=== PATIENT | male | born 1980 ===

== ENCOUNTER 2016-10-21 08:40 | Emergency (ER) | payer MEDICAID, OTHER ==
[~2016-10-21] VITALS: Ht 177.8 cm; Wt 83.6 kg
[2016-10-21 08:49] VITALS: BP 108/61; PULSE 71; RESP 34; O2SAT 100
[2016-10-21] MEDS ORDERED: Ondansetron 2 mg/mL 2 mL Inj ONE (08:53)
--- NOTE | 2016-10-21 09:02 | ED.REPORT ---
HPI-General Illness Date of Service Oct 21, 2016 ED Provider: Dr. Hawley Patient is a 36 year old male w. a hx of chronic abdominal pain of unclear etiology that has taken aspirin x5 for pain control prior to arrival complaining of ongoing epigastric abdominal pain for the past year, worse this morning. Pain is described as a cramping and burning, intensity 10/10. He admits to having diarrhea and vomiting with dark colored emesis, as well as pallor, dizziness and lightheadedness. Patient denies black or bloody tarry stools. He denies any history of medical problems, previous surgeries. He drinks about 2 beers every other day. Nursing Notes Stated Complaint: ABDOMINAL PAIN Chief Complaint: General Complaint Nursing Notes Reviewed: Yes Allergies: Coded Allergies: No Known Allergies (Unverified , 10/21/16) Scheduled Famotidine (Pepcid) 40 Mg Tablet 40 MG PO BID Scheduled PRN Hydrocodone-Acetaminophen 5-325 mg (Hydrocodone-Acetaminophen 5-325 mg) 1 Each Tablet 1 TABLET PO Q4H PRN PRN For Pain Ondansetron ODT (Zofran ODT) 4 Mg Tablet 4 MG PO Q4H PRN PRN For Nausea General Time Seen by MD: 09:02 Chief Complaint Abdominal pain Hx Obtained From: Patient Arrived By: Walk-in Sudden in Onset?: No Onset Occurred: More than a week ago... (>6 months) Symptom Duration: Since onset Location: : Abdomen Quality: Burning Severity: Current: Severe Severity: Maximum: Severe Recent Healthcare: No recent doctor visit, No recent hospitalization Similar Sx Previous: Yes Past Medical History Past Medical History Hx of abdominal pain Past Surgical History No surgery reported Smoking History Never Smoker Social History Has not smoked THC in over a year. Alcohol Use: 1-3 per week Drug Use: THC Ambulatory Status Independent Review of Systems Full Review of Systems Constitutional: Reports: Chills, Denies: Fever Ears / Nose / Throat: Denies: Sore throat Cardiovascular: Denies: Chest pain GI: Reports: Abdominal pain, Hematemesis, Nausea, Vomiting, Denies: Bloody/tarry stool Neurologic: Reports: Dizziness, Lightheaded Complete sys rev & neg: except as marked. Physical Exam Vital Signs Vital Signs Date Time Temp Pulse Resp B/P Pulse Ox O2 Delivery O2 Flow Rate FiO2 10/21/16 11:28 36.7 92 19 149/89 99 Room Air 10/21/16 09:05 72 27 112/58 100 Room Air 10/21/16 08:49 36.1 71 34 108/61 100 Room Air Initial VS: Reviewed, Vital signs abnormal Head / Eyes: Atraumatic, Normocephalic, PERRL ENT: Mucous membranes moist, Conjunctiva normal, No scleral icterus Neck: Supple, Full range of motion Respiratory: Breath sounds normal, No respiratory distress Cardiovascular: Regular rate & rhythm, Heart sounds normal Extremities: Vascular intact, Neuro intact Skin: Warm, Dry, No cyanosis Neurologic: Alert, Oriented Psychiatric: Mood/affect normal, Behavior normal, Normal thought content General/Constitutional: Awake, Alert, Cooperative, Not toxic appearing Appearance / Presentation: Positive: Pale Abdomen: Atraumatic, Soft, No guarding, No rebound, No distention Tenderness/Guarding/Rebound: Positive: Tender epigastric Interpretation & Diagnostics Lab Results Interpretation Result Diagram: 10/21/16 0855 10/21/16 0855 Test 10/21/16 08:55 White Blood Count 9.7th/mm3 (3.8-10.1) Red Blood Count 4.41mil/mm3 (4.40-5.80) Hemoglobin 13.1g/dL (13.8-17.2) Hematocrit 37.1% (41.0-50.0) Mean Corpuscular Volume 84.1fL (81-100) Mean Corpuscular Hemoglobin 29.7pg (27.0-35.0) Mean Corpuscular Hemoglobin Concent 35.3% (32.0-37.0) Red Cell Distribution Width 13.5% (12.3-15.4) Platelet Count 224bil/L (150-400) Neutrophils (%) (Auto) 60.5% (40-74) Lymphocytes (%) (Auto) 30.8% (14-46) Monocytes (%) (Auto) 6.4% (4-12) Eosinophils (%) (Auto) 1.9% (0-5) Basophils (%) (Auto) 0.2% (0-3) Prothrombin Time 10.0sec (8.1-12.5) Prothromb Time International Ratio 0.94ratio Sodium Level 137mEq/L (134-144) Potassium Level 3.9mEq/L (3.5-5.2) Chloride Level 101mEq/L (97-108) Carbon Dioxide Level 20mmol/L (18-29) Blood Urea Nitrogen 9mg/dL (6-20) Creatinine 0.94mg/dL (0.76-1.27) Estimat Glomerular Filtration Rate 97mL/min (>59) Glucose Level 194mg/dL (60-99) Calcium Level 10.0mg/dL (8.5-10.1) Magnesium Level 2.1mg/dL (1.6-2.6) Total Bilirubin 0.3mg/dL (0.0-1.2) Aspartate Amino Transf (AST/SGOT) 15U/L (0-50) Alanine Aminotransferase (ALT/SGPT) 14U/L (0-44) Alkaline Phosphatase 82U/L (25-150) Troponin T 0.010ug/L (0.0-0.011) Total Protein 7.1g/dL (6.4-8.4) Albumin 4.3g/dL (3.4-5.0) Hold White Top Tube Received (Received) ECG Interpretation Time: 08:58 Interpreted by: ED physician Normal ECG Interpretation: Normal sinus rhythm (72) CT Abd / Pelvis Interpretation IMPRESSION: 1. Cholelithiasis as above. No wall thickening or ductal dilation. 2. Mild/moderate scattered stool without obstruction. Dictated by: Padmini Packer M.D. on 10/21/2016 at 10:41 Approved by: Padmini Packer M.D. on 10/21/2016 at 10:44 Study type: Abdominal CT IV contrast Interpretation / Wet Read by: Interpret - Radiologist Re-Eval/Medical Decision Med Decision/Clinical Course No obvious cause for pain, he is not tender in the right upper quadrant and there is no signs of cholecystitis is likely incidental. He will be discharged with pain, nausea medication, as well as Pepcid. Return and follow-up precautions given. Source of Hx: Old records Time of Eval: 09:02 Patient Status: Condition improved Re-Evaluation/Progress Note: Patient is informed of radiology results and diagnosis. Abdomen reevaluated, no right upper quadrant tenderness, patient is nontender to palpation in all 4 quadrants without rebound or guarding. Plan for discharge is discussed. The patient understands and agrees with the plan. All questions have been answered at this time. Counseled Regarding: Diagnosis, Lab results, Need for follow-up, When/why to return to ED Discharge & Departure Primary Impression: Acute abdominal pain Disposition: Home Discharge Condition All VS Reviewed: Yes Condition: Improved Additional Instructions: Your labs and CAT scan are reassuring. Begin taking Pepcid, Zofran, and tramadol as needed. Follow-up with the GI doctor and general surgeon for further evaluation and discussion of your gallstones as well as possible upper endoscopy. Avoid alcohol, spicy foods, greasy foods, acidic foods or other things which may upset your stomach. Return to the ER as needed for concerning symptoms. Referrals: Kayla Blue MD (PCP) [facility] Son Attestation Portions of this note were transcribed by Minh Warren and Austen Xiao. I, Dr. Hawley personally performed the history, physical exam and medical decision-making; I reviewed and confirmed the accuracy of the information in the transcribed note. Signed by: Minh Warren and Son Niño, 10/21 1135. copies to: [facility]; Kayla Blue MD, Timothy S DO Oct 21, 2016 09:02 Minh Warren Oct 21, 2016 09:11 AUSTEN XIAO Oct 21, 2016 10:04
[2016-10-21 09:05] VITALS: BP 112/58; PULSE 72; RESP 27; O2SAT 100
[2016-10-21] MEDS ORDERED: Pantoprazole Inj 80 MG, Pharmacy To Mix 1 EA in 0.9% Sodium Chloride 80 ML IV ONE ×2 (09:10)
[2016-10-21] MEDS ORDERED: Pantoprazole 4 mg/mL 10 mL Inj IVPUSH ONE (09:10)
[2016-10-21] MEDS ORDERED: Ondansetron 2 mg/mL 2 mL Inj IVPUSH PRN (09:10)
[2016-10-21] MEDS: HYDROmorphone 1 mg/mL Inj IVPUSH PRN ×3 (09:10→10:17)
[2016-10-21] MEDS ORDERED: 0.9% Sodium Chloride 1,000 ML IV SCH (09:10)
[2016-10-21] MEDS ORDERED: 0.9% Sodium Chloride 1,000 ML IV ONE (09:10)
[2016-10-21 09:15] LABS: BASOPHILS % (AUTO) 0.2 % (0-3); EOSINOPHILS % (AUTO) 1.9 % (0-5); MONOCYTES % (AUTO) 6.4 % (4-12); Mean Corpuscular Hemoglobin 29.7 pg (27.0-35.0); Mean Corpuscular Volume 84.1 fL (81-100); NEUTROPHILS % (AUTO) 60.5 % (40-74); Platelet Count 224 bil/L (150-400)
[2016-10-21 09:31] LABS: INR 0.94 ratio
[2016-10-21] MEDS ORDERED: Haloperidol 5 mg/mL Inj IVPUSH ONE (09:45)
[2016-10-21 09:48] LABS: TROPONIN T 0.01 ug/L (0.0-0.011)
[2016-10-21 09:59] LABS: Magnesium 2.1 mg/dL (1.6-2.6)
--- NOTE | 2016-10-21 10:46 | DRSVH ---
PROCEDURE: CT ABDOMEN AND PELVIS WITH CONTRAST ([id number]) INDICATIONS: upper abd pain TECHNIQUE: After the administration of intravenous contrast, 5 mm thick sections acquired from the diaphragm to the symphysis. 5 mm coronal and sagittal reformats were acquired. For radiation dose reduction, the following was used: automated exposure control, adjustment of mA and/or kV according to patient siz e. COMPARISON: None. FINDINGS: Image quality: Excellent. ABDOMEN: Lung bases: Lung bases are clear. Heart size is normal. Solid organs: Liver and spleen are normal in size and enhancement. Gallbladder demonstrates a calci fication at the gallbladder neck. No wall thickening. Biliary system is non dilated. Pancreas enhanc es normally. No adrenal nodules. Kidneys demonstrate normal size and enhancement, without hydroneph rosis. Peritoneum and bowel: Bowel loops demonstrate normal wall thickness and caliber. No free fluid or a ir. The appendix is unremarkable. Mild to moderate scattered stool. Nodes and vessels: No retroperitoneal or mesenteric adenopathy by size criteria. Aorta and inferior vena cava are normal in size. Miscellaneous: No ventral hernias. PELVIS: Genitourinary: Bladder wall thickness is normal. Miscellaneous: No inguinal hernias or adenopathy. Bones: No suspicious bony lesions. No vertebral body compression fractures. IMPRESSION: 1. Cholelithiasis as above. No wall thickening or ductal dilation. 2. Mild/moderate scattered stool without obstruction. Dictated by: Padmini Packer M.D. on 10/21/2016 at 10:41 Approved by: Padmini Packer M.D. on 10/21/2016 at 10:44
[2016-10-21] MEDS ORDERED: FAMO40TA72 PO (11:09)
[2016-10-21] MEDS ORDERED: HYDR-4003 PO (11:09)
[2016-10-21] MEDS ORDERED: ONDA4TAB9 PO (11:09)
[2016-10-21 11:28] VITALS: BP 149/89; PULSE 92; RESP 19; O2SAT 99
== END 2016-10-21 11:30 | disposition home or self-care (01) ==
LOC: SED 08:40
DX: R10.13 Epigastric pain (principal)
CPT/HCPCS: 36415; 74177; 80053; 83735; 84484; 85025; 85610; 86850; 93005; 96361; 96374; 96375; 96376; 99285; J1170; J1630; J2405; J7030; Q9967